=== PATIENT | male | born 1965 | race American Indian/Alaskan Native ===

== ENCOUNTER 2016-09-16 09:52 | Emergency (ER) | payer SELFPAY ==
[2016-09-16 12:05] LABS: Basophils % (Auto) 0.6 % (0.0-1.8); Eosinophils % (Auto) 0.7 % (0.0-4.3); Hematocrit 47.8 % (35.5-45.6); Hemoglobin 16.3 gm/dl (11.8-15.2); Mean Corpuscular HGB Conc 34 % (32-34); Mean Corpuscular Hemoglobin 33 pg (28-32); Mean Corpuscular Volume 96 fl (84-94); Platelet Count 271 K/mm3 (140-440); Red Blood Count 4.99 M/mm3 (3.65-5.03); Red Cell Distribution Width 11.9 % (13.2-15.2); White Blood Count 4.9 K/mm3 (4.5-11.0)
[2016-09-16 12:25] LABS: Bilirubin,Urine NEG (Negative); Blood,Urine NEG (Negative); Ketones,Urine NEG (Negative); Leukocyte Esterase,Urine NEG (Negative); Mucus,Urine FEW /HPF; Nitrite,Urine NEG (Negative); Protein,Urine <15 mg/dL mg/dL (Negative); Urobilinogen,Urine < 2.0 mg/dL (<2.0)
[2016-09-16 13:16] LABS: Anion Gap 18 mmol/L; Blood Urea Nitrogen 12 mg/dL (9-20); Calcium 9.9 mg/dL (8.4-10.2); Carbon Dioxide 26 mmol/L (22-30); Chloride 98.1 mmol/L (98-107); Glucose 159 mg/dL (75-100); Potassium 4.8 mmol/L (3.6-5.0); Sodium 137 mmol/L (137-145)
[2016-09-16] MEDS ORDERED: NORVASC ONE (18:11)
--- NOTE | 2016-09-16 18:15 | Emergency Department Report ---
HPI - General Chief Complaint: Medical Clearance Time Seen by Provider: 09/16/16 17:53 - HPI HPI: Room 7 The patient is a 51-year-old male presenting with a chief complaint of diabetes. The patient apparently had a preemployment physical at [employer] and was noted to have glucosuria. The patient was informed that he needed and insulin adjustment and that he should bring a letter from her primary physician indicating his blood sugar has stabilized. I contacted the examining physician Dr. Sood at [phone] I discussed the case. Dr. Cabrera states although a note from the ED would not be harmful he needs to have a note from a primary physician indicating that his glucose and medications have been stabilized. Patient denies complaints Location: [see above] Duration: [see above] Quality: Hyperglycemia Severity: [see above] Modifying factors: [see above] Context: [see above] Mode of transportation: Unknown ED Past Medical Hx - Past Medical History Previous Medical History?: Yes Hx Diabetes: Yes Hx Arthritis: Yes - Surgical History Past Surgical History?: No - Family History Family history: no significant - Social History Smoking Status: Never Smoker Substance Use Type: None - Medications Home Medications: Home Medications Medication Instructions Recorded Confirmed Last Taken Type Insulin Aspart Prot/Aspart 15 unit SQ BID #1 bottle 10/31/14 Unknown Rx [NovoLOG Mix 70/30] ED Review of Systems ROS: Stated complaint: MEDICAL CLEARANCE Other details as noted in HPI Comment: All other systems reviewed and negative Constitutional: denies: chills, fever Eyes: denies: eye pain, eye discharge, vision change ENT: denies: ear pain, throat pain Respiratory: denies: cough, shortness of breath, wheezing Cardiovascular: denies: chest pain, palpitations Endocrine: no symptoms reported Gastrointestinal: denies: abdominal pain, nausea, diarrhea Genitourinary: denies: urgency, dysuria Musculoskeletal: denies: back pain, joint swelling, arthralgia Skin: denies: rash, lesions Neurological: denies: headache, weakness, paresthesias Psychiatric: denies: anxiety, depression Hematological/Lymphatic: denies: easy bleeding, easy bruising Physical Exam - Physical Exam Vital Signs: Vital Signs 09/16/16 11:36 Temperature 98.5 F Pulse Rate 75 Respiratory 16 Rate Blood Pressure 166/115 O2 Sat by Pulse 100 Oximetry Physical Exam: GENERAL: The patient is well-developed well-nourished male lying on stretcher not appearing to be in acute distress. [] HEENT: Normocephalic. Atraumatic. Extraocular motions are intact. Patient has moist mucous membranes. NECK: Supple. Trachea midline CHEST/LUNGS: Clear to auscultation. There is no respiratory distress noted. HEART/CARDIOVASCULAR: Regular. There is no tachycardia. There is no gallop rub or murmur. ABDOMEN: Abdomen is soft, nontender. Patient has normal bowel sounds. There is no abdominal distention. SKIN: There is no rash. There is no edema. There is no diaphoresis. NEURO: The patient is awake, alert, and oriented. The patient is cooperative. The patient has no focal neurologic deficits. The patient has normal speech MUSCULOSKELETAL: There is no evidence of acute injury. ED Course Vital Signs 09/16/16 11:36 Temperature 98.5 F Pulse Rate 75 Respiratory 16 Rate Blood Pressure 166/115 O2 Sat by Pulse 100 Oximetry ED Medical Decision Making - Lab Data Result diagrams: 09/16/16 11:52 09/16/16 11:52 Laboratory Tests 09/16/16 09/16/16 09/16/16 11:34 11:52 11:52 WBC 4.9 RBC 4.99 Hgb 16.3 H Hct 47.8 H MCV 96 H MCH 33 H MCHC 34 RDW 11.9 L Plt Count 271 Lymph % (Auto) 29.3 [place] % (Auto) 8.2 H Eos % (Auto) 0.7 Baso % (Auto) 0.6 Lymph # 1.4 [place] # 0.4 Eos # 0.0 Baso # 0.0 Seg Neutrophils % 61.2 Seg Neutrophils # 3.0 Sodium 137 Potassium 4.8 Chloride 98.1 Carbon Dioxide 26 Anion Gap 18 BUN 12 Creatinine 0.8 Estimated GFR > 60 BUN/Creatinine Ratio 15.00 Glucose 159 H POC Glucose 172 H Calcium 9.9 Urine Color Urine Turbidity Urine pH Ur Specific [place] Urine Protein Urine Glucose (UA) Urine Ketones Urine Blood Urine Nitrite Urine Bilirubin Urine Urobilinogen Ur Leukocyte Esterase Urine WBC (Auto) Urine RBC (Auto) U Epithel Cells (Auto) Urine Mucus 09/16/16 Unknown WBC RBC Hgb Hct MCV MCH MCHC RDW Plt Count Lymph % (Auto) [place] % (Auto) Eos % (Auto) Baso % (Auto) Lymph # [place] # Eos # Baso # Seg Neutrophils % Seg Neutrophils # Sodium Potassium Chloride Carbon Dioxide Anion Gap BUN Creatinine Estimated GFR BUN/Creatinine Ratio Glucose POC Glucose Calcium Urine Color Yellow Urine Turbidity Clear Urine pH 8.0 H Ur Specific [place] 1.020 Urine Protein <15 mg/dl Urine Glucose (UA) 150 Urine Ketones Neg Urine Blood Neg Urine Nitrite Neg Urine Bilirubin Neg Urine Urobilinogen < 2.0 Ur Leukocyte Esterase Neg Urine WBC (Auto) 1.0 Urine RBC (Auto) 2.0 U Epithel Cells (Auto) < 1.0 Urine Mucus Few - Differential Diagnosis diabetes Critical care attestation.: If time is entered above; I have spent that time in minutes in the direct care of this critically ill patient, excluding procedure time. ED Disposition Clinical Impression: Diabetes, Glucosuria Disposition: DISCHARGED TO HOME OR SELFCARE Is pt being admited?: No Does the pt Need Aspirin: No Condition: Stable Instructions: Diabetes Mellitus Type 2 in Adults (ED) Additional Instructions: Glucose in the emergency department today was 159 and your urine glucose was 150 mg/dL. No adjustments to your insulin would be made today based on these numbers. Return to the emergency department immediately should you develop worsening symptoms, fever, inability to tolerate food or liquid or any other concerns. Referrals: PRIMARY CARE, [Primary Care Provider] - 3-[address] [facility] [Outside] - [place] (Please follow up at the [facility] clinic for further management and evaluation) Time of Disposition: 18:18
[2016-09-16 18:17] VITALS: BP 167/102
[2016-09-16] MEDS ORDERED: NORVASC PO ONE (18:17)
== END 2016-09-16 18:25 | disposition home or self-care (01) ==
LOC: ED 09:52
DX: E11.65 Type 2 diabetes mellitus with hyperglycemia (principal); R81 Glycosuria
CPT/HCPCS: 36415; 80048; 81001; 82962; 85025; 99283

== ENCOUNTER 2016-09-25 09:21 | Emergency (ER) | payer SELFPAY ==
[2016-09-25] MEDS ORDERED: MOTRIN PO ONE (12:43)
--- NOTE | 2016-09-25 13:18 | Cat Scan Report ---
CT HEAD WITHOUT CONTRAST: HISTORY: Head, uncontrolled hypertension. Serial contiguous axial images were obtained through the cranium. Intravenous contrast material was not administered. The ventricles are normal in size and appearance. There is no mass effect or midline shift. No areas of abnormally increased or decreased attenuation are seen. No mass lesion is seen. The mastoid air cells and visualized portions of the sinuses are normal. IMPRESSION: Cranial CT scan within normal limits.
[2016-09-25 13:20] LABS: Bilirubin,Urine NEG (Negative); Blood,Urine NEG (Negative); Ketones,Urine NEG (Negative); Leukocyte Esterase,Urine SM (Negative); Mucus,Urine FEW /HPF; Nitrite,Urine NEG (Negative); Protein,Urine <15 mg/dL mg/dL (Negative); Urobilinogen,Urine < 2.0 mg/dL (<2.0)
[2016-09-25 13:24] LABS: Anion Gap 17 mmol/L; BUN/Creatinine Ratio 17.14; Blood Urea Nitrogen 12 mg/dL (9-20); Calcium 9.4 mg/dL (8.4-10.2); Carbon Dioxide 26 mmol/L (22-30); Chloride 98.6 mmol/L (98-107); Creatine Kinase 238 units/L (55-170); Glucose 87 mg/dL (75-100); Potassium 3.7 mmol/L (3.6-5.0); Sodium 138 mmol/L (137-145)
--- NOTE | 2016-09-25 14:10 | Emergency Department Report ---
Entered by JUN CARTER, acting as scribe for FORTUNATO CHO PA. ED Headache HPI - General Chief Complaint: Headache Stated Complaint: SEVERE HEADACHE Time Seen by Provider: 09/25/16 11:54 Source: patient Exam Limitations: no limitations - History of Present Illness Initial Comments: 51 year male with a PMHx of HTN and IDDM presents to the ED c/o a constant headache that began one week ago. Patient states that the pain radiates from anterior head to posterior head with associated neck pain, which is currently rated a 2 out 10 in severity. Associated symptoms includes minimal blurry vision and generalized weakness with low blood sugar, but he denies, shortness of breath, chest pain, palpitations, nausea, vomiting, numbness, tingling and abdominal pain. Patient notes that he has not been compliant with HTN medication for 3 years. Denies tobacco and illicit drug use, but reports EtOH consumption about 3 days a week. Notes allergic to shellfish. NKDA. Timing/Duration: 1 week, constant Quality: mild, constant Recent Head Trauma: no recent headache/trauma Modifying Factors: worse with: medication (Tylenol with no relief) Associated Symptoms: vision changes (minimal blurry vision), weakness ( generalized with low blood sugar). denies: fever/chills, nausea/vomiting, numbness in legs/feet, other (abdominal pain, tingling sensation, palpitations, chest pain, shortness of breath, but reports neck pain) Allergies/Adverse Reactions: Allergies shellfish derived Allergy (Verified 09/25/16 09:32) Swelling Home Medications: Ambulatory Orders Insulin Aspart Prot/Aspart(Nf) [NovoLOG Mix 70/30] 15 unit SQ BID #1 bottle Hydrochlorothiazide [HCTZ] 25 mg PO QDAY #30 tablet 09/25/16 Ibuprofen [Motrin] 600 mg PO Q8H PRN #30 tablet 09/25/16 ED Review of Systems Comment: All other systems reviewed and negative Constitutional: weakness (generalized with low blood sugar). denies: chills, fever Eyes: denies: vision change (minimal blurry vision) Respiratory: denies: orthopnea, shortness of breath, SOB with exertion, SOB at rest, stridor Cardiovascular: denies: chest pain, palpitations, dyspnea on exertion, orthopnea Gastrointestinal: denies: abdominal pain, nausea, vomiting Musculoskeletal: other (neck pain). denies: back pain Neurological: headache (front of head radiating to back of head). denies: numbness, other (tingling) ED Past Medical Hx - Past Medical History Hx Hypertension: Yes (STOPPED MEDICINE) Hx Diabetes: Yes Hx Arthritis: Yes - Surgical History Past Surgical History?: No - Social History Smoking Status: Never Smoker Substance Use Type: Alcohol - Medications Home Medications: Home Medications Medication Instructions Recorded Confirmed Last Taken Type Insulin Aspart Prot/Aspart(Nf) 15 unit SQ BID #1 bottle 10/31/14 Unknown Rx [NovoLOG Mix 70/30] Hydrochlorothiazide [HCTZ] 25 mg PO QDAY #30 tablet 09/25/16 Unknown Rx Ibuprofen [Motrin] 600 mg PO Q8H PRN #30 tablet 09/25/16 Unknown Rx ED Physical Exam - General Limitations: No Limitations General appearance: alert, in no apparent distress - Head Head exam: Present: atraumatic, normocephalic - Eye Eye exam: Present: normal appearance, PERRL, EOMI Pupils: Present: normal accommodation - ENT ENT exam: Present: normal exam, mucous membranes moist - Neck Neck exam: Present: normal inspection, full ROM. Absent: tenderness, meningismus, lymphadenopathy - Respiratory Respiratory exam: Present: normal lung sounds bilaterally. Absent: respiratory distress, wheezes, rales, rhonchi, stridor - Cardiovascular Cardiovascular Exam: Present: regular rate, normal rhythm. Absent: bradycardia , tachycardia, irregular rhythm, systolic murmur, diastolic murmur, rubs, gallop - GI/Abdominal GI/Abdominal exam: Present: soft. Absent: distended, tenderness, guarding, rebound - Extremities Exam Extremities exam: Present: normal inspection, full ROM - Back Exam Back exam: Present: normal inspection, full ROM - Neurological Exam Neurological exam: Present: alert, oriented X3, CN II-XII intact, normal gait, reflexes normal. Absent: motor sensory deficit - Expanded Neurological Exam Expanded Neurological exam: Absent: innattentive Patient oriented to: Present: person, place, time Speech: Present: fluid speech Cranial nerves: EOM's Intact: Normal, Tongue Deviation: Normal, Facial Sensation : Normal Ataxia: Absent: yes Cerebellar function: Finger to Nose: Normal, [place]: Normal Motor strength exam: RUE: 5, LUE: 5, RLE: 5, LLE: 5 Best Eye Response ([place]): (4) open spontaneously Best Motor Response ([place]): (6) obeys commands Best Verbal Response ([place]): (5) oriented [place] Total: 15 - Psychiatric Psychiatric exam: Present: normal affect, normal mood - Skin Skin exam: Present: warm, dry, intact, normal color ED Course Vital Signs 09/25/16 09:31 Temperature 98.3 F Pulse Rate 94 H Respiratory 17 Rate Blood Pressure 158/101 O2 Sat by Pulse 99 Oximetry ED Medical Decision Making - Lab Data Result diagrams: 09/25/16 12:51 - Medical Decision Making A/P: Headache, hypertension 1-patient's headache improved significantly after 1 dose of Motrin, head CT noncontrast within normal limits blood work and urinalysis within normal limits 2-I will refer patient to primary care 3-we'll start patient on low-dose hydrochlorothiazide and give short course of Motrin when necessary for headache 4-educated patient on stroke symptoms and advised him to return for any slurred speech paresthesias numbness weakness, patient understood these instructions clearly and I gave him literature on this issue. 5- patient's blood pressure 150/100 before discharge, headache has abated. No chest pain no palpitations no nausea no vomiting no abdominal pain no blurry vision reported by patient. Case d/w Dr. Lane before discharge ED Disposition Clinical Impression: Headache Qualifiers: Headache type: tension-type Headache chronicity pattern: acute headache Intractability: not intractable Qualified Code(s): G44.209 - Tension-type headache, unspecified, not intractable Hypertension Qualifiers: Hypertension type: unspecified secondary hypertension Qualified Code(s): I15.9 - Secondary hypertension, unspecified; I15 - Secondary hypertension Disposition: DISCHARGED TO HOME OR SELFCARE Is pt being admited?: No Does the pt Need Aspirin: No Condition: Stable Instructions: Hypertension (ED), Acute Headache (ED) Prescriptions: Hydrochlorothiazide [HCTZ] 25 mg PO QDAY #30 tablet Ibuprofen [Motrin] 600 mg PO Q8H PRN #30 tablet PRN Reason: Headache Referrals: SHASTA LYNN MD [Staff Physician] - 3-5 Days [facility] [Outside] - 3-5 Days [facility] [Provider Group] - 3-5 Days Forms: Work/School Release Form(ED) Time of Disposition: 13:57 This documentation as recorded by the RAUL saucedo JASMINE,accurately reflects the service I personally performed and the decisions made by ,FORTUNATO CHO PA.
[2016-09-25 14:23] VITALS: BP 150/100
== END 2016-09-25 14:00 | disposition home or self-care (01) ==
LOC: ED 09:21
DX: G44.209 Tension-type headache, unspecified, not intractable (principal); I15.9 Secondary hypertension, unspecified; E11.9 Type 2 diabetes mellitus without complications; M19.90 Unspecified osteoarthritis, unspecified site; Z91.013 Allergy to seafood
CPT/HCPCS: 36415; 70450; 80048; 81001; 82550

== ENCOUNTER 2020-02-16 05:38 | Emergency (ER) | payer OTHER ==
[2020-02-16 06:38] VITALS: BP 155/97
[2020-02-16 07:10] LABS: Alanine Aminotransferase 30 units/L (7-56); Albumin 4.8 g/dL (3.9-5); BUN/Creatinine Ratio 15; Blood Urea Nitrogen 17 mg/dL (9-20); Calcium 10.6 mg/dL (8.4-10.2); Hemolysis Index 19
[2020-02-16 07:24] LABS: Basophils % (Auto) 0.4 % (0.0-1.8); Eosinophils # (Auto) 0.1 K/mm3 (0.0-0.4); Eosinophils % (Auto) 1.9 % (0.0-4.3); Hematocrit 41.8 % (35.5-45.6); Hemoglobin 14.4 gm/dl (11.8-15.2); Lymphocytes # (Auto) 2.5 K/mm3 (1.2-5.4); Lymphocytes % (Auto) 40.3 % (13.4-35.0); Mean Corpuscular HGB Conc 35 % (32-34); Mean Corpuscular Volume 97 fl (84-94); Monocytes # (Auto) 0.7 K/mm3 (0.0-0.8); Monocytes % (Auto) 11.6 % (0.0-7.3); Platelet Count 186 K/mm3 (140-440); Red Blood Count 4.32 M/mm3 (3.65-5.03); Red Cell Distribution Width 12.4 % (13.2-15.2)
[2020-02-16 07:32] LABS: Bilirubin,Urine NEG (Negative); Blood,Urine NEG (Negative); Color,Urine Yellow (Yellow); Hyaline Casts,Urine 1 /LPF; Mucus,Urine 3+ /HPF; Urobilinogen,Urine < 2.0 mg/dL (<2.0)
[2020-02-16 10:11] LABS: BUN/Creatinine Ratio 14; Blood Urea Nitrogen 13 mg/dL (9-20); Calcium 9.4 mg/dL (8.4-10.2); Hemolysis Index 12
--- NOTE | 2020-02-16 10:28 | Emergency Department Report ---
HPI - General Chief Complaint: Dizziness Time Seen by Provider: 02/16/20 10:16 - HPI HPI: This is a 54-year-old male who presents to the emergency department with a complaint of a one-month history of having episodes in which he becomes lightheaded/dizzy, has nausea and vomiting, and passes out, when he is working outside in the heat. He says that this does not happen to him when he is inside and never used to happen to him while working outside prior to this past month. At the time of my examination the patient does not have any complaints other than wanting to find out what is happening to him while working outside. He has a past medical history of insulin-dependent diabetes for which he is on Humulin 70/30. He has a primary care physician in [place], Dr. Wynn, who he saw 2 weeks ago without any significant work-up. No recent travel or sick contacts at home. Patient says that he is drinking water and electrolyte drinks while wor stephanie out in the heat. ED Past Medical Hx - Past Medical History Previous Medical History?: Yes Hx Hypertension: Yes (STOPPED MEDICINE) Hx Diabetes: Yes Hx Arthritis: Yes - Surgical History Past Surgical History?: No - Social History Smoking Status: Former Smoker Substance Use Type: Alcohol - Medications Home Medications: Home Medications Medication Instructions Recorded Confirmed Last Taken Type Insulin Aspart Prot/Aspart(Nf) 15 unit SQ BID #1 bottle 10/31/14 Unknown Rx [NovoLOG Mix 70/30] Ibuprofen [Motrin] 600 mg PO Q8H PRN #30 tablet 09/25/16 Unknown Rx hydroCHLOROthiazide [HCTZ] 25 mg PO QDAY #30 tablet 09/25/16 Unknown Rx Ibuprofen [Motrin] 600 mg PO Q8H PRN #12 tablet 05/12/18 Unknown Rx ED Review of Systems ROS: Stated complaint: DIZZINESS Other details as noted in HPI Comment: All other systems reviewed and negative Constitutional: denies: chills, fever Eyes: denies: eye pain, vision change ENT: denies: ear pain, throat pain Respiratory: denies: cough, shortness of breath Cardiovascular: syncope. denies: chest pain Gastrointestinal: nausea, vomiting Genitourinary: denies: dysuria, discharge Musculoskeletal: denies: back pain, arthralgia Skin: denies: rash, lesions Neurological: other (dizzy/lightheaded). denies: headache Physical Exam - Physical Exam Vital Signs: Vital Signs 02/16/20 05:46 Temperature 97.9 F Pulse Rate 82 Respiratory 20 Rate Blood Pressure 155/97 O2 Sat by Pulse 99 Oximetry Physical Exam: GENERAL: The patient is well-developed well-nourished. HENT: Normocephalic. Atraumatic. Patient has moist mucous membranes. EYES: Extraocular motions are intact. No nystagmus. NECK: Supple. Trachea is midline. CHEST/LUNGS: Clear to auscultation. There is no respiratory distress noted. HEART/CARDIOVASCULAR: Regular. There is no tachycardia. There is no murmur. ABDOMEN: Abdomen is soft, nontender. Patient has normal bowel sounds. There is no abdominal distention. SKIN: Skin is warm and dry. NEURO: The patient is awake, alert, and oriented. The patient is cooperative. The patient has no focal neurologic deficits. Normal speech. Cranial nerves II through XII grossly intact. No pronator drift or dysmetria. MUSCULOSKELETAL: There is no tenderness or deformity. There is no limitation range of motion. ED Course Vital Signs 02/16/20 05:46 Temperature 97.9 F Pulse Rate 82 Respiratory 20 Rate Blood Pressure 155/97 O2 Sat by Pulse 99 Oximetry ED Medical Decision Making - Lab Data Result diagrams: 02/16/20 05:52 02/16/20 10:51 - EKG Data -: EKG Interpreted by Me EKG shows normal: sinus rhythm, axis, intervals, QRS complexes, ST-T waves Rate: normal - EKG Data When compared to previous EKG there are: previous EKG unavailable Interpretation: normal EKG - Radiology Data Radiology results: image reviewed interpreted by me: Chest x-ray does not show any acute process. There are no pleural effusions, obvious pneumonia and there is no pneumothorax. No significant cardiomegaly. - Medical Decision Making This patient presents to the emergency department with the complaint of having nausea, vomiting, lightheadedness/dizziness and syncopal episodes while working outside in the heat. Since being in the emergency department the patient is awake, alert, oriented and in no acute distress. Patient says that the symptoms only occur when he is outside working in the heat. He had an EKG that does not show any morphology consistent with ST elevation MT or any dysrhythmia. Chest x-ray does not show any pneumonia, pleural effusions, pneumothorax, or any other acute process. Patient's labs have been unremarkable including CBC, metabolic panel, troponin, CK level. The TSH was slightly low but this does not appear consistent with any significant thyroid abnormalities. His vital signs have been reassuring throughout his ED course. Patient was reevaluated multiple times over multiple hours and there has been no syncopal episodes, seizure-like activity, and he has remained stable. He will be discharged home to follow-up with primary care and he has been given a referral for cardiology. 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 He will return to the emergency department with any worsening of his symptoms or with any acute distress. Critical Care Time: No Critical care attestation.: If time is entered above; I have spent that time in minutes in the direct care of this critically ill patient, excluding procedure time. ED Disposition Clinical Impression: Hypertension Qualifiers: Hypertension type: essential hypertension Qualified Code(s): I10 - Essential (primary) hypertension Syncope Qualifiers: Syncope type: unspecified Qualified Code(s): R55 - Syncope and collapse Disposition: DC-01 TO HOME OR SELFCARE Is pt being admited?: No Condition: Stable Instructions: Syncope (ED), Hypertension (ED) Additional Instructions: Please follow-up with your primary care physician in the next few days. I have given you a referral for a local lumber sticker, Dr. Kahn, to follow-up regarding these episodes of passing out that he has been having. I recommend avoiding working outside, operating any heavy machinery, working on the top of the roof, until evaluated by your primary care physician and/or lumber sticker secondary to the recurrent episodes of passing out. Return to the emergency department with any worsening of your symptoms or with any acute distress. Referrals: YI WYNN [Primary Care Provider] - 2-3 Days LASHANDA KAHN MD [Staff Physician] - 2-3 Days Time of Disposition: 13:17
--- NOTE | 2020-02-16 11:15 | XRay Report ---
CHEST 1 VIEW 02/16/2020 9:51 AM INDICATION / CLINICAL INFORMATION: Syncope. COMPARISON: None available. FINDINGS: SUPPORT DEVICES: None. HEART / MEDIASTINUM: No significant abnormality. LUNGS / PLEURA: No significant pulmonary or pleural abnormality. No pneumothorax. ADDITIONAL FINDINGS: No significant additional findings. IMPRESSION: 1. No acute findings. Signer Name: Jacques Gunderson MD Signed: 02/16/2020 11:11 AM Workstation Name: [id number]
== END 2020-02-16 13:17 | disposition home or self-care (01) ==
LOC: ED 05:38
DX: I10 Essential (primary) hypertension (principal); R55 Syncope and collapse; E11.9 Type 2 diabetes mellitus without complications; M13.88 Other specified arthritis, other site; Z87.891 Personal history of nicotine dependence; Z79.4 Long term (current) use of insulin; Z79.899 Other long term (current) drug therapy; Z91.013 Allergy to seafood
CPT/HCPCS: 36415; 71045; 80048; 80053; 81001; 82550; 84132; 84295; 84443; 84484; 85025; 93005